=== PATIENT | female | born 1990 | race African-American/Black ===

== ENCOUNTER 2018-08-14 06:52 | Emergency (ER) | payer MEDICAID ==
[~2018-08-14] VITALS: Ht 167.6 cm; Wt 73.9 kg
[2018-08-14 07:16] VITALS: BP 119/77
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
[2018-08-14] MEDS ORDERED: LORazepam 1mg tab ORAL ONE (07:30)
[2018-08-14] MEDS ORDERED: IBUPROFEN600 MG ORAL (08:54)
[2018-08-14 09:17] VITALS: BP 119/77
--- NOTE | 2018-08-14 10:08 | Diagnostic Imaging Report ---
Indication: Right hand pain Findings: 3 views of the right hand were obtained. There is a intra-articular fracture at the base of the first metacarpal extending into the first metacarpal carpal joint. Remainder the exam is unremarkable. IMPRESSION: Acute fracture base of the first metacarpal
== END 2018-08-14 09:18 | disposition home or self-care (01) ==
LOC: EMR 07:15
DX: S62.231A Other displaced fracture of base of first metacarpal bone, right hand, initial encounter for closed fracture (principal); S00.511A Abrasion of lip, initial encounter; S50.312A Abrasion of left elbow, initial encounter; Y04.0XXA Assault by unarmed brawl or fight, initial encounter; Y93.9 Activity, unspecified; Y92.9 Unspecified place or not applicable
CPT/HCPCS: 99283